=== PATIENT | female | born 1990 | race Caucasian/White ===

== ENCOUNTER 2018-01-28 23:28 | Emergency (ER) | payer OTHER ==
[2018-01-29] MEDS ORDERED: Zofran 4 MG/2 ML VIAL IV ONE (00:03)
[2018-01-29] MEDS ORDERED: Zofran 4 MG/2 ML VIAL ONE (00:09)
[2018-01-29] MEDS ORDERED: Sodium Chloride 0.9% 1000 ML 1,000 ML ONE (00:09)
--- NOTE | 2018-01-29 00:11 | ERPHSYRPT ---
- History of Present Illness Time Seen by Provider: 01/28/18 23:57 Historian: patient Exam Limitations: clinical condition Patient Subjective Stated Complaint: Pt arrives to ER with c/o mid epigastric abdominal pain began last night at work and became worse today. Also c/o N/V. Was constipated for 2 days and had BM today but has abdominal cramping feeling need for another BM. Denies fever, dysuria, hematuria or any other sx. Triage Nursing Assessment: see above Physician History: PATIENT COMPLAINS OF UPPER ABDOMINAL PAINS X 6 HOURS ASSOCIATED WITH NAUSEA AND EMESIS. HAS ASSOCIATED CONSTIPATION. DENIES URINARY SYMPTOMS. Timing/Duration: today, hour(s) Activities at Onset: none Quality: cramping Abdominal Pain Onset Location: epigastric Pain Radiation: no radiation Severity of Pain-Max: moderate Severity of Pain-Current: moderate Associated Symptoms: nausea, vomiting Allergies/Adverse Reactions: No Known Drug Allergies Allergy (Verified 01/28/18 23:53) Hx Tetanus, Diphtheria Vaccination/Date Given: (unknown) Hx Influenza Vaccination/Date Given: No Hx Pneumococcal Vaccination/Date Given: No - Review of Systems Constitutional: No Fever, No Chills Eyes: No Symptoms Ears, Nose, & Throat: No Symptoms Respiratory: No Cough, No Dyspnea Cardiac: No Chest Pain, No Edema, No Syncope Abdominal/Gastrointestinal: Abdominal Pain, Nausea, Vomiting, No Diarrhea Genitourinary Symptoms: No Symptoms, No Dysuria Musculoskeletal: No Symptoms, No Back Pain, No Neck Pain Skin: No Rash Neurological: No Symptoms, No Dizziness, No Focal Weakness, No Sensory Changes Psychological: No Symptoms Endocrine: No Symptoms All Other Systems: Reviewed and Negative - Past Medical History Pertinent Past Medical History: Yes Neurological History: No Pertinent History ENT History: No Pertinent History Cardiac History: No Pertinent History Respiratory History: No Pertinent History Endocrine Medical History: No Pertinent History Musculoskeletal History: No Pertinent History GI Medical History: Gallbladder Disease History: No Pertinent History Psycho-Social History: No Pertinent History Female Reproductive Disorders: No Pertinent History - Past Surgical History Past Surgical History: Yes Neuro Surgical History: No Pertinent History Cardiac: No Pertinent History Respiratory: No Pertinent History Gastrointestinal: Cholecystectomy Genitourinary: No Pertinent History Musculoskeletal: No Pertinent History Female Surgical History: Section Other Surgical History: t &a, skin biopsy - Social History Smoking Status: Current every day smoker Exposure to second hand smoke: Yes Drug Use: none Patient Lives Alone: No - Female History Hx Now: No - Nursing Vital Signs Nursing Vital Signs: Initial Vital Signs Temperature 97.4 F 01/28/18 23:45 Pulse Rate 64 01/28/18 23:45 Respiratory Rate 18 01/28/18 23:45 Blood Pressure 127/77 01/28/18 23:45 O2 Sat by Pulse Oximetry 99 01/28/18 23:45 Pain Scale Pain Intensity 4 - Physical Exam General Appearance: no apparent distress, alert Eye Exam: PERRL/EOMI, eyes nml inspection Ears, Nose, Throat Exam: normal ENT inspection, pharynx normal, moist mucous membranes Neck Exam: normal inspection, non-tender, supple, full range of motion Respiratory Exam: normal breath sounds, lungs clear, No respiratory distress Cardiovascular Exam: regular rate/rhythm, normal heart sounds Gastrointestinal/Abdomen Exam: soft, normal bowel sounds, tenderness (UPPER EPIGASTRIC TENDERNESS), No mass Back Exam: normal inspection, normal range of motion, No CVA tenderness, No vertebral tenderness Extremity Exam: normal inspection, normal range of motion, pelvis stable Neurologic Exam: alert, oriented x 3, cooperative, normal mood/affect, nml cerebellar function, sensation nml, No motor deficits Skin Exam: normal color, warm, dry SpO2 Interpretation: normal SpO2: 99 Oxygen Delivery: Room Air - CT Exams Abdomen/Pelvis CT Interpretation: Tele-radiologist Report (FINDINGS SUGGESTIVE OF MESENTERIC ADENITIS, MILD, POSSIBLE LARGE FIBROID IN LOWER UTERINE SEGMENT) Ordered Tests: Active Orders 24 hr Category Date Time Status Clean Catch Urine Specimen STAT Care 01/29/18 00:03 Active IV Insertion STAT Care 01/29/18 00:03 Active ABDOMEN AND PELVIS W CONTRAST [CT] Stat Exams 01/29/18 00:04 Taken AMYLASE Stat Lab 01/29/18 00:20 Completed CBC W DIFF Stat Lab 01/29/18 00:20 Completed CMP Stat Lab 01/29/18 00:20 Completed HCG,QUALITATIVE URINE Stat Lab 01/29/18 02:15 Completed LIPASE Stat Lab 01/29/18 00:20 Completed UA W/ MICROSCOPIC Stat Lab 01/29/18 00:30 Completed Medication Summary Generic Name Dose Route Start Last Admin Trade Name Freq PRN Reason Stop Dose Admin Sodium Chloride 1,000 mls @ 500 mls/hr 01/29/18 00:15 01/29/18 02:30 Sodium Chloride 0.9% 1000 Ml IV 02/28/18 00:14 Infused .Q2H ANGELICA Infusion Discontinued Medications Generic Name Dose Route Start Last Admin Trade Name Larissa PRN Reason Stop Dose Admin Fentanyl Citrate 100 mcg 01/29/18 00:55 01/29/18 00:59 Sublimaze 100 Mcg/2 Ml IV 01/29/18 00:56 100 mcg STAT ONE Administration Fentanyl Citrate Confirm 01/29/18 00:57 Sublimaze 100 Mcg/2 Ml Administered 01/29/18 00:58 Dose 100 mcg .ROUTE .STK[facility] ONE Ondansetron HCl 4 mg 01/29/18 00:03 01/29/18 00:15 Zofran 4 Mg/2 Ml Vial IV 01/29/18 00:04 4 mg STAT ONE Administration Ondansetron HCl Confirm 01/29/18 00:09 Zofran 4 Mg/2 Ml Vial Administered 01/29/18 00:10 Dose 4 mg .ROUTE .STK-MED ONE Lab/Rad Data: Laboratory Result Diagrams 01/29/18 00:20 01/29/18 00:20 Laboratory Results 01/29/18 01/29/18 01/29/18 Range/Units 02:15 00:30 00:20 WBC (4.0-10.5) K/mm3 RBC (4.1-5.4) M/mm3 Hgb (12.0-16.0) gm/dl Hct (35-47) % MCV (78-100) fl MCH (26-32) pg MCHC (32-36) g/dl RDW (11.5-14.0) % Plt Count (150-450) K/mm3 MPV (6-9.5) fl Gran % (36.0-66.0) % Eos # (Auto) (0-0.5) Absolute Lymphs (auto) (1.0-4.6) Absolute Monos (auto) (0.0-1.3) Lymphocytes % (24.0-44.0) % Monocytes % (0.0-12.0) % Eosinophils % (0.00-5.0) % Basophils % (0.0-0.4) % Absolute Granulocytes (1.4-6.9) Basophils # (0-0.4) Sodium 140 (137-145) mmol/L Potassium 3.7 (3.5-5.1) mmol/L Chloride 106 (98-107) mmol/L Carbon Dioxide 25 (22-30) mmol/L Anion Gap 13.3 (5-15) MEQ/L BUN 10 (7-17) mg/dL Creatinine 0.64 (0.52-1.04) mg/dL Estimated GFR > 60.0 ML/MIN Glucose 107 H (74-106) mg/dL Calcium 9.4 (8.4-10.2) mg/dL Total Bilirubin 0.30 (0.2-1.3) mg/dL AST 15 (14-36) U/L ALT 15 (0-35) U/L Alkaline Phosphatase 68 (38-126) U/L Serum Total Protein 7.7 (6.3-8.2) g/dL Albumin 4.4 (3.5-5.0) g/dL Amylase 69 (30-110) U/L Lipase 53 (23-300) U/L Ur Collection Type CLEAN CATCH Urine Color YELLOW (YELLOW) Urine Appearance CLEAR (CLEAR) Urine pH 5.0 (5-6) Ur Specific [place] 1.030 (1.005-1.025) Urine Protein NEGATIVE (Negative) Urine Ketones NEGATIVE (NEGATIVE) Urine Blood TRACE NON-HEM (0-5) Ju[place]/ul Urine Nitrite NEGATIVE (NEGATIVE) Urine Bilirubin NEGATIVE (NEGATIVE) Urine Urobilinogen NORMAL (0-1) mg/dL Ur Leukocyte Esterase NEGATIVE (NEGATIVE) Urine Microscopic RBC 5-10 (0-2) /HPF Ur Epithelial Cells FEW (FEW) /HPF Urine Bacteria RARE (NEGATIVE) /HPF Urine Culture Reflexed NO (NO) Urine Glucose NEGATIVE (NEGATIVE) mg/dL Urine HCG, Qual NEGATIVE (Negative) Specimen Received 01/29/18 0030 01/29/18 Range/Units 00:20 WBC 9.4 (4.0-10.5) K/mm3 RBC 4.48 (4.1-5.4) M/mm3 Hgb 14.2 (12.0-16.0) gm/dl Hct 41.3 (35-47) % MCV 92.2 (78-100) fl MCH 31.7 (26-32) pg MCHC 34.4 (32-36) g/dl RDW 12.9 (11.5-14.0) % Plt Count 313 (150-450) K/mm3 MPV 11.3 H (6-9.5) fl Gran % 60.9 (36.0-66.0) % Eos # (Auto) 0.32 (0-0.5) Absolute Lymphs (auto) 2.52 (1.0-4.6) Absolute Monos (auto) 0.81 (0.0-1.3) Lymphocytes % 26.8 (24.0-44.0) % Monocytes % 8.6 (0.0-12.0) % Eosinophils % 3.4 (0.00-5.0) % Basophils % 0.3 (0.0-0.4) % Absolute Granulocytes 5.73 (1.4-6.9) Basophils # 0.03 (0-0.4) Sodium (137-145) mmol/L Potassium (3.5-5.1) mmol/L Chloride (98-107) mmol/L Carbon Dioxide (22-30) mmol/L Anion Gap (5-15) MEQ/L BUN (7-17) mg/dL Creatinine (0.52-1.04) mg/dL Estimated GFR ML/MIN Glucose (74-106) mg/dL Calcium (8.4-10.2) mg/dL Total Bilirubin (0.2-1.3) mg/dL AST (14-36) U/L ALT (0-35) U/L Alkaline Phosphatase (38-126) U/L Serum Total Protein (6.3-8.2) g/dL Albumin (3.5-5.0) g/dL Amylase (30-110) U/L Lipase (23-300) U/L Ur Collection Type Urine Color (YELLOW) Urine Appearance (CLEAR) Urine pH (5-6) Ur Specific [place] (1.005-1.025) Urine Protein (Negative) Urine Ketones (NEGATIVE) Urine Blood (0-5) Ju[place]/ul Urine Nitrite (NEGATIVE) Urine Bilirubin (NEGATIVE) Urine Urobilinogen (0-1) mg/dL Ur Leukocyte Esterase (NEGATIVE) Urine Microscopic RBC (0-2) /HPF Ur Epithelial Cells (FEW) /HPF Urine Bacteria (NEGATIVE) /HPF Urine Culture Reflexed (NO) Urine Glucose (NEGATIVE) mg/dL Urine HCG, Qual (Negative) Specimen Received - Progress Progress: pain not gone completely Progress Note: 01/29/18 04:13 IV NORMAL SALINE 500ML/HR, X 2 ZOFRAN 4MG, FENTANYL 50MCG IV Counseled pt/family regarding: lab results, diagnosis, need for follow-up, rad results - Departure Time of Disposition: 04:20 Departure Disposition: Home Clinical Impression: ACUTE EMESIS Condition: Stable Critical Care Time: No Referrals: JOSE LI MD [Primary Care Provider] - Additional Instructions: DRINK PLENTY OF FLUIDS. ZOFRAN 4MG EVERY 6 HOURS NEEDED FOR NAUSEA. PEPCID 20MG TWICE DAILY FOR 2 WEEKS. CONSULT YOUR PRIMARY CARE PROVIDER FOR FOLLOWUP. RETURN TO EMERGENCY FOR RECURRENT VOMITING. Prescriptions: Ondansetron ODT 4 MG [Zofran Odt 4 mg] 4 mg PO Q6H PRN PRN #10 tab.rapdis PRN Reason: Nausea Famotidine 20 mg [Pepcid 20 MG] 20 mg PO BID #30 tablet
[2018-01-29] MEDS ORDERED: Sodium Chloride 0.9% 1000 ML 1,000 ML IV SCH (00:15)
[2018-01-29 00:33] LABS: BASOPHIL % 0.3 % (0.0-0.4); Basophil (Absolute #) 0.03 (0-0.4); Eosinophil % 3.4 % (0.00-5.0); Eosinophil (Absolute #) 0.32 (0-0.5); Granulocyte Absolute (ANC) 5.73 (1.4-6.9); Granulocytes % 60.9 % (36.0-66.0); Hematocrit 41.3 % (35-47); Hemoglobin 14.2 gm/dl (12.0-16.0); Lymphocyte (Absolute #) 2.52 (1.0-4.6); Lymphocytes % 26.8 % (24.0-44.0); Mean Cell Volume 92.2 fl (78-100); Mean Corpuscular Hemoglobin 31.7 pg (26-32); Mean Corpuscular Hgb Concent. 34.4 g/dl (32-36); Mean Platelet Volume 11.3 fl (6-9.5); Monocyte (Absolute #) 0.81 (0.0-1.3); Monocytes % 8.6 % (0.0-12.0); Platelet Count 313 K/mm3 (150-450); Red Blood Count 4.48 M/mm3 (4.1-5.4); Red Cell Distribution Width 12.9 % (11.5-14.0); White Blood Count 9.4 K/mm3 (4.0-10.5)
[2018-01-29 00:52] LABS: ALBUMIN 4.4 g/dL (3.5-5.0); ALKALINE PHOSPHATASE 68 U/L (38-126); AMYLASE 69 U/L (30-110); ANION GAP 13.3 MEQ/L (5-15); BLOOD UREA NITROGEN 10 mg/dL (7-17); CHLORIDE 106 mmol/L (98-107); Calcium 9.4 mg/dL (8.4-10.2); Carbon Dioxide 25 mmol/L (22-30); Creatinine 1 0.64 mg/dL (0.52-1.04); Glucose 107 mg/dL (74-106); LIPASE 53 U/L (23-300); Potassium 3.7 mmol/L (3.5-5.1); SGOT/AST 15 U/L (14-36); SGPT/ALT 15 U/L (0-35); SODIUM 140 mmol/L (137-145); Total Protein 7.7 g/dL (6.3-8.2)
[2018-01-29] MEDS ORDERED: SUBLIMAZE 100 MCG/2 ML IV ONE (00:55)
[2018-01-29] MEDS ORDERED: SUBLIMAZE 100 MCG/2 ML ONE (00:57)
[2018-01-29 01:02] LABS: Appearance CLEAR (CLEAR); Bacteria RARE /HPF (NEGATIVE); Bilirubin NEGATIVE (NEGATIVE); Blood TRACE NON-HEM Ery/ul (0-5); Epithelial Cells FEW /HPF (FEW); Glucose NEGATIVE (NEGATIVE); Ketones NEGATIVE (NEGATIVE); Leukocyte Esterase NEGATIVE (NEGATIVE); Nitrite NEGATIVE (NEGATIVE); Protein,Urine Dip NEGATIVE (Negative); Urobilinogen NORMAL mg/dL (0-1)
[2018-01-29 03:28] VITALS: BP 109/65; PULSE 57
[2018-01-29 04:19] VITALS: O2SAT 99
--- NOTE | 2018-01-29 20:56 | XRAY ---
Exam: CT of the abdomen and pelvis with IV contrast from 01/29/2018. CTDI: 19.46 Comparison: None. Indication: 27-year-old female with sharp acute upper abdominal pain. History of prior cholecystectomy. Technique: Post-IV contrast axial images were obtained through the abdomen and pelvis during and following automated injection of 80 cc of Isovue 370 contrast material. Reconstructed coronal and sagittal images were created and reviewed. Findings: The visualized lung bases appear clear. The patient has bilateral nipple rings. The liver appears unremarkable. Minimal focal fatty change is seen within the anterior aspect of the left lobe of the liver adjacent to the falciform ligament. I don't believe this is significant. Surgical clips consistent with prior cholecystectomy are seen within the right upper quadrant. There is slight intrahepatic bile duct prominence which probably reflects the patient's prior cholecystectomy. There is also mild prominence of the common bile duct which measures up to about 8 mm in diameter on axial image #31. This is also most likely due to the patient's postcholecystectomy state. The spleen appears unremarkable. The pancreas, adrenal glands, and kidneys appear normal. The kidneys function on delayed images. I see no renal calculi or evidence of hydronephrosis. The abdominal aorta appears of normal diameter. No abnormal retroperitoneal lymphadenopathy is seen. No free intraperitoneal air is noted. Unfortunately, mild motion artifact is noted within the mid to lower pelvis. Apparently, the patient sneezed during the exam. I see no findings to suggest appendicitis within the right lower quadrant. There are several very small nonspecific mesenteric lymph nodes within the right lower quadrant, the largest measuring about 0.9 cm in greatest length. Consider mild mesenteric adenitis. I see no evidence of significant bowel distention or bowel wall thickening. Some fluid-filled nondilated distal small bowel loops are seen within the lower pelvis. I see no bowel obstruction. An IUD is seen within a mildly anteflexed uterus. Within the lower uterine segment near the cervix, there is a 3.5 cm in diameter, ring-like, hypoattenuated density, best seen on axial images #79 and #80. I do not definitely see this on the coronal or sagittal images. Consider the possibility of a mass in the cervix or within the lower uterine segment. A follow-up pelvic ultrasound may be helpful. I believe there is a 1.3 cm in diameter follicle within the left ovary on axial image #75. There is minimal nonspecific free fluid within the cul-de-sac on axial images #75 through #80. No enlarged pelvic lymph nodes are seen. The urinary bladder is incompletely distended. The skeleton reveals no fracture or aggressive bone lesion. There is minimal convexity of the spine toward the right centered at L1-L2. Impression: 1. The study is mildly motion limited within the pelvis. 2. The appendix is identified within the right hemipelvis and appears normal. I do note several small mesenteric lymph nodes within the right lower quadrant. These are relatively nonspecific. Consider mild mesenteric adenitis. 3. There is a 3.5 cm in diameter, ring-like, hypoattenuated density either within the lower uterine segment or near the cervix on axial images #79 and #80. Significance of this is not clear. A small mass is not excluded with present imaging. Consider further evaluation with a pelvic ultrasound. 4. 1.3 cm in diameter follicle or small cyst within left ovary. There is also minimal nonspecific free fluid within the cul-de-sac. 5. The uterus is anteflexed and tilted to the right of midline. It contains an IUD. 6. Status post cholecystectomy. 7. No other acute process is seen within the abdomen or pelvis.
== END 2018-01-29 04:28 | disposition home or self-care (01) ==
LOC: ED 23:28
DX: R11.2 Nausea with vomiting, unspecified (principal); R10.13 Epigastric pain; K59.00 Constipation, unspecified
CPT/HCPCS: 36000; 36415; 74177; 80053; 81000; 82150; 83690; 84703; 85025; 96360; 96374; 96375; 99284; J2405; J3010

== ENCOUNTER 2021-08-21 15:30 | Observation (INO) | payer OTHER ==
[2021-08-21] MEDS ORDERED: Sodium Chloride 0.9% 1000 ML 1,000 ML ONE (16:06)
[2021-08-21] MEDS: Sodium Chloride 0.9% 1000 ML 1,000 ML IV SCH (16:09)
[2021-08-21 16:13] LABS: BASOPHIL % 0.8 % (0.0-0.4); Basophil (Absolute #) 0.06 (0-0.4); Eosinophil % 6.3 % (0.00-5.0); Hematocrit 39.6 % (35-47); Lymphocyte (Absolute #) 2.57 (1.0-4.6); Lymphocytes % 32.5 % (24.0-44.0); Mean Cell Volume 91.9 fl (78-100); Mean Corpuscular Hemoglobin 30.2 pg (26-32); Mean Corpuscular Hgb Concent. 32.8 g/dl (32-36); Mean Platelet Volume 10.6 fl (7.5-11.0); Monocyte (Absolute #) 0.67 (0.0-1.3); Monocytes % 8.5 % (0.0-12.0); Neutrophil % 51.9 % (36.0-66.0); Platelet Count 295 K/mm3 (150-450); Red Blood Count 4.31 M/mm3 (4.1-5.4); Red Cell Distribution Width 12.4 % (11.5-14.0); White Blood Count 7.9 K/mm3 (4.0-10.5)
--- NOTE | 2021-08-21 16:27 | XRAY ---
Indication: Seizure. History seizures. Multiple contiguous axial images obtained through the head without contrast. Comparison: None Normal appearing brain parenchyma, ventricles, and bony calvarium. Visualized paranasal sinuses and mastoid or cells are clear. Impression: Normal CT head without contrast exam.
[2021-08-21 16:31] LABS: ALBUMIN 4.5 g/dL (3.5-5.0); ALKALINE PHOSPHATASE 72 U/L (38-126); ANION GAP 12.3 MEQ/L (5-15); BLOOD UREA NITROGEN 5 mg/dL (7-17); CHLORIDE 103 mmol/L (98-107); Calcium 9.6 mg/dL (8.4-10.2); Carbon Dioxide 27 mmol/L (22-30); Creatinine 1 0.73 mg/dL (0.52-1.04); EST GLOMERULAR FILTRATION RATE > 60.0 ML/MIN; ETHYL ALCOHOL < 10 mg/dL (0-10); Glucose 97 mg/dL (74-106); MAGNESIUM 1.7 mg/dL (1.6-2.3); Potassium 3.6 mmol/L (3.5-5.1); SGOT/AST 22 U/L (14-36); SGPT/ALT 18 U/L (0-35); SODIUM 139 mmol/L (137-145); Total Protein 7.5 g/dL (6.3-8.2)
[2021-08-21 17:39] LABS: Appearance SLIGHTLY CLOUDY (CLEAR); Bilirubin NEGATIVE (NEGATIVE); Blood NEGATIVE Ery/ul (0-5); Glucose NEGATIVE (NEGATIVE); Ketones NEGATIVE (NEGATIVE); Leukocyte Esterase NEGATIVE (NEGATIVE); Mucus SLIGHT /HPF (NEGATIVE); Nitrite NEGATIVE (NEGATIVE); Protein,Urine Dip NEGATIVE (Negative); Specific Gravity 1.005 (1.005-1.025); Urobilinogen NEGATIVE mg/dL (0-1)
--- NOTE | 2021-08-21 17:58 | ERPHSYRPT ---
- History of Present Illness Time Seen by Provider: 08/21/21 15:45 Source: patient Exam Limitations: no limitations Patient Subjective Stated Complaint: " I have shingles in my left eye and I was at the eye doctor and they said I had a seizure". Triage Nursing Assessment: Pt presents to ER, by private vehicle from eye doctor. Pt's eye doctor called and stated she had a witnessed seizure in his exam room as he was evaulating her for shingles in the left eye. Pt complains of pain in left eye and noted swelling/rash. Pt is alert and oriented x 3. Does not recall seizure, states she got really hot and then she thinks she lost conciousness. It was reported that seizure lasted approx 10 seconds and pt was shaking arms and legs. Pt skin is pink, warm, and dry. States she had seizure like activity earlier this year when she was getting her blood drawn. Pt respirations are easy. Pt complains of dizziness, lightheadedness, tingling all over, and headache. 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 Patient has shingles to her left eye. Patient was obtaining a eye exam by her raw stock drier tender when she reportedly had a seizure. The seizure was described as a generalized seizure. Seizure lasted approximately 10 seconds. Patient does not recall the seizure but states she felt as though she had passed out. Patient complains of dizziness lightheadedness and tingling throughout her body. She has a mild headache. Patient states she has had a s eizure in the past. Patient had a seizure while she was donating blood. Symptoms are mild to moderate in intensity. No specific worsening improving factors. Patient voices no other complaints or concerns at this time. Timing/Duration: today Severity: moderate Modifying Factors: Improves With: nothing Associated Symptoms: syncope, seizure Allergies/Adverse Reactions: No Known Drug Allergies Allergy (Verified 08/21/21 15:45) Home Medications: Belimumab [Benlysta] 200 mg SQ WEEKLY 08/21/21 [History] Duloxetine HCl 30 mg PO DAILY 08/21/21 [History] Ergocalciferol (Vitamin D2) [Vitamin D2] 1 cap PO DAILY 08/21/21 [History] Hydroxyzine HCl 25 mg [Atarax 25 mg] 25 mg PO HS 08/21/21 [History] Hx Tetanus, Diphtheria Vaccination/Date Given: No Hx Influenza Vaccination/Date Given: No Hx Pneumococcal Vaccination/Date Given: No Immunizations Up to Date: Yes Travel Risk - International Travel Have you traveled outside of the country in past 3 weeks: No - Coronavirus Screening Are you exhibiting any of the following symptoms?: No Close contact with a COVID-19 positive Pt in past 14-21 Days: No - Vaccine Status Have you recieved a Covid-19 vaccination: No - Review of Systems Constitutional: No Symptoms, No Fever, No Chills Eyes: No Symptoms Ears, Nose, & Throat: No Symptoms Respiratory: No Symptoms, No Cough, No Dyspnea Cardiac: No Symptoms, No Chest Pain, No Edema, No Syncope Abdominal/Gastrointestinal: No Symptoms, No Abdominal Pain, No Nausea, No Vomiting, No Diarrhea Genitourinary Symptoms: No Symptoms, No Dysuria Musculoskeletal: No Symptoms, No Back Pain, No Neck Pain Skin: No Symptoms, No Rash Neurological: No Symptoms, No Dizziness, No Focal Weakness, No Sensory Changes Psychological: No Symptoms Endocrine: No Symptoms Hematologic/Lymphatic: No Symptoms Immunological/Allergic: No Symptoms All Other Systems: Reviewed and Negative - Past Medical History Pertinent Past Medical History: Yes Neurological History: Seizures ENT History: No Pertinent History Cardiac History: No Pertinent History Respiratory History: No Pertinent History Endocrine Medical History: No Pertinent History Musculoskeletal History: Fibromyalgia GI Medical History: Gallbladder Disease History: No Pertinent History Psycho-Social History: No Pertinent History Female Reproductive Disorders: No Pertinent History Other Medical History: LUPUS - Past Surgical History Past Surgical History: Yes Neuro Surgical History: No Pertinent History Cardiac: No Pertinent History Respiratory: No Pertinent History Gastrointestinal: Cholecystectomy Genitourinary: No Pertinent History Musculoskeletal: Orthopedic Surgery Female Surgical History: Section Other Surgical History: t &a, skin biopsy, carpal tunnel - Social History Smoking Status: Former smoker Exposure to second hand smoke: No Drug Use: none Patient Lives Alone: No - Female History Hx Now: No - Nursing Vital Signs Nursing Vital Signs: Initial Vital Signs Temperature 96.5 F 08/21/21 15:35 Pulse Rate 65 08/21/21 15:35 Respiratory Rate 18 08/21/21 15:35 Blood Pressure 121/87 08/21/21 15:35 O2 Sat by Pulse Oximetry 100 08/21/21 15:35 Pain Scale Pain Intensity 3 - Physical Exam General Appearance: no apparent distress, alert Eye Exam: PERRL/EOMI, eyes nml inspection Ears, Nose, Throat Exam: normal ENT inspection, TMs normal, pharynx normal, moist mucous membranes Neck Exam: normal inspection, non-tender, supple, full range of motion Respiratory Exam: normal breath sounds, lungs clear, airway intact, No respirat ory distress Cardiovascular Exam: regular rate/rhythm, normal heart sounds, normal peripheral pulses Gastrointestinal/Abdomen Exam: soft, normal bowel sounds, No tenderness, No mass Back Exam: normal inspection, normal range of motion, No CVA tenderness, No vertebral tenderness Extremity Exam: normal inspection, normal range of motion, pelvis stable Neurologic Exam: alert, oriented x 3, cooperative, normal mood/affect, sensation nml, No motor deficits Skin Exam: normal color, warm, dry, No rash Lymphatic Exam: No adenopathy SpO2 Interpretation: normal SpO2: 99 O2 Delivery: Room Air Procedures - Lumbar Puncture Timeout: Performed Indication: r/o meningitis Lumbar Puncture: consent obtained, sitting, 3-4 lumbar space Progress: Patient agreed to procedure. Consent was signed. However midway to the procedure patient declined the procedure. Patient states she no longer wanted to do the procedure. Procedure was aborted due to patient's request. - Course Nursing assessment & vital signs reviewed: Yes EKG Interpreted by Me: RATE ([id number]), Sinus Rhythm, NORMAL AXIS, NORMAL INTERVALS - CT Exams Head CT Interpretation: Tele-radiologist Report (Normal CT head without contrast.) Ordered Tests: Active Orders 24 hr Category Date Time Status Clinical Appeals Auditor STAT Care 08/21/21 15:44 Active EKG-ER Only STAT Care 08/21/21 15:43 Active IV Insertion STAT Care 08/21/21 15:43 Active Pulse Oximetry (ED) STAT Care 08/21/21 15:43 Active HEAD WITHOUT CONTRAST [CT] Stat Exams 08/21/21 15:44 Completed CBC W DIFF Stat Lab 08/21/21 15:43 Completed CMP Stat Lab 08/21/21 15:43 Completed ETHYL ALCOHOL Stat Lab 08/21/21 15:43 Completed MAGNESIUM Stat Lab 08/21/21 15:43 Completed TROPONIN Q3H Lab 08/21/21 15:45 Completed TROPONIN Q3H Lab 08/21/21 18:50 Completed TROPONIN Q3H Lab 08/21/21 21:51 Received TROPONIN Q3H Lab 08/22/21 00:45 Ordered TROPONIN Q3H Lab 08/22/21 03:45 Ordered UA W/RFX UR CULTURE Stat Lab 08/21/21 17:24 Completed Transfer Order Routine Transfer 08/21/21 Ordered Medication Summary Generic Name Dose Route Start Last Admin Trade Name Larissa PRN Reason Stop Dose Admin Sodium Chloride 1,000 mls @ 100 mls/hr 08/21/21 15:45 08/21/21 16:09 Sodium Chloride 0.9% 1000 Ml IV 09/20/21 15:44 100 mls/hr .Q10H ANGELICA Administration Discontinued Medications Generic Name Dose Route Start Last Admin Trade Name Larissa PRN Reason Stop Dose Admin Acetaminophen 1,000 mg 08/21/21 20:08 08/21/21 20:08 Acetaminophen 500 Mg Tablet PO 08/21/21 20:09 1,000 mg STAT ONE Administration Acetaminophen Confirm 08/21/21 20:07 Acetaminophen 500 Mg Tablet Administered 08/21/21 20:08 Dose 1,000 mg .ROUTE .STK-MED ONE Acyclovir Sodium Confirm 08/21/21 19:01 Acyclovir Sodium 500 Mg/Vial Vial Administered 08/21/21 19:02 Dose 500 mg IV .STK-MED ONE Vancomycin HCl 1 gm in 200 mls @ 125 mls/hr 08/21/21 18:28 08/21/21 21:52 Vancomycin 1 Gram/200 Ml Bag IV 08/21/21 20:03 Infused STAT ONE Infusion Ceftriaxone Sodium/Dextrose 1 g in 50 mls @ 100 mls/hr 08/21/21 18:29 08/21/21 19:26 Rocephin 1 Gm-D5w 50 Ml Bag IV 08/21/21 18:58 Infused STAT STA Infusion Acyclovir Sodium 500 mg/ 100 mls @ 100 mls/hr 08/21/21 18:30 08/21/21 19:02 Dextrose IV 08/21/21 19:29 100 mls/hr STAT ONE Administration Ceftriaxone Sodium/Dextrose Confirm 08/21/21 18:31 Rocephin 1 Gm-D5w 50 Ml Bag Administered 08/21/21 18:32 Dose 1 g in 50 mls @ ud IV .STK-MED ONE Dextrose Confirm 08/21/21 19:01 D5w 100ml Mini Bag 100 Ml Administered 08/21/21 19:02 Dose 100 mls @ ud IV .STK-MED ONE Vancomycin HCl Confirm 08/21/21 20:15 Vancomycin 1 Gram/200 Ml Bag Administered 08/21/21 20:16 Dose 1 gm in 200 mls @ ud IV .STK-MED ONE Lab/Rad Data: Laboratory Result Diagrams 08/21/21 15:43 08/21/21 15:43 Laboratory Results 08/21/21 08/21/21 08/21/21 Range/Units 20:25 18:50 17:24 WBC (4.0-10.5) K/mm3 RBC (4.1-5.4) M/mm3 Hgb (12.0-16.0) gm/dl Hct (35-47) % MCV (78-100) fl MCH (26-32) pg MCHC (32-36) g/dl RDW (11.5-14.0) % Plt Count (150-450) K/mm3 MPV (7.5-11.0) fl Gran % (36.0-66.0) % Eos # (Auto) (0-0.5) Absolute Lymphs (auto) (1.0-4.6) Absolute Monos (auto) (0.0-1.3) Lymphocytes % (24.0-44.0) % Monocytes % (0.0-12.0) % Eosinophils % (0.00-5.0) % Basophils % (0.0-0.4) % Absolute Granulocytes (1.4-6.9) Basophils # (0-0.4) Sodium (137-145) mmol/L Potassium (3.5-5.1) mmol/L Chloride (98-107) mmol/L Carbon Dioxide (22-30) mmol/L Anion Gap (5-15) MEQ/L BUN (7-17) mg/dL Creatinine (0.52-1.04) mg/dL Estimated GFR ML/MIN Glucose (74-106) mg/dL Calcium (8.4-10.2) mg/dL Magnesium (1.6-2.3) mg/dL Total Bilirubin (0.2-1.3) mg/dL AST (14-36) U/L ALT (0-35) U/L Alkaline Phosphatase (38-126) U/L Troponin I < 0.012 (0.000-0.034) ng/mL Serum Total Protein (6.3-8.2) g/dL Albumin (3.5-5.0) g/dL Urine Color STRAW (YELLOW) Urine Appearance SLIGHTLY CLOUDY (CLEAR) Urine pH 7.0 (5-6) Ur Specific [place] 1.005 (1.005-1.025) Urine Protein NEGATIVE (Negative) Urine Ketones NEGATIVE (NEGATIVE) Urine Blood NEGATIVE (0-5) [place]/ul Urine Nitrite NEGATIVE (NEGATIVE) Urine Bilirubin NEGATIVE (NEGATIVE) Urine Urobilinogen NEGATIVE (0-1) mg/dL Ur Leukocyte Esterase NEGATIVE (NEGATIVE) Urine WBC (Auto) NONE (0-5) /HPF Urine RBC (Auto) NONE (0-2) /HPF U Epithel Cells (Auto) NONE (FEW) /HPF Urine Bacteria (Auto) NONE (NEGATIVE) /HPF Urine Mucus (Auto) SLIGHT (NEGATIVE) /HPF Urine Culture Reflexed NO (NO) Urine Glucose NEGATIVE (NEGATIVE) mg/dL Ethyl Alcohol (0-10) mg/dL Influenza Type A Ag NEGATIVE (NEGATIVE) Influenza Type B Ag NEGATIVE (NEGATIVE) RSV (PCR) NEGATIVE (Negative) SARS-CoV-2 (PCR) NEGATIVE (NEGATIVE) 08/21/21 08/21/21 08/21/21 Range/Units 15:45 15:43 15:43 WBC 7.9 (4.0-10.5) K/mm3 RBC 4.31 (4.1-5.4) M/mm3 Hgb 13.0 (12.0-16.0) gm/dl Hct 39.6 (35-47) % MCV 91.9 (78-100) fl MCH 30.2 (26-32) pg MCHC 32.8 (32-36) g/dl RDW 12.4 (11.5-14.0) % Plt Count 295 (150-450) K/mm3 MPV 10.6 (7.5-11.0) fl Gran % 51.9 (36.0-66.0) % Eos # (Auto) 0.50 (0-0.5) Absolute Lymphs (auto) 2.57 (1.0-4.6) Absolute Monos (auto) 0.67 (0.0-1.3) Lymphocytes % 32.5 (24.0-44.0) % Monocytes % 8.5 (0.0-12.0) % Eosinophils % 6.3 H (0.00-5.0) % Basophils % 0.8 (0.0-0.4) % Absolute Granulocytes 4.10 (1.4-6.9) Basophils # 0.06 (0-0.4) Sodium 139 (137-145) mmol/L Potassium 3.6 (3.5-5.1) mmol/L Chloride 103 (98-107) mmol/L Carbon Dioxide 27 (22-30) mmol/L Anion Gap 12.3 (5-15) MEQ/L BUN 5 L (7-17) mg/dL Creatinine 0.73 (0.52-1.04) mg/dL Estimated GFR > 60.0 ML/MIN Glucose 97 (74-106) mg/dL Calcium 9.6 (8.4-10.2) mg/dL Magnesium 1.7 (1.6-2.3) mg/dL Total Bilirubin 0.70 (0.2-1.3) mg/dL AST 22 (14-36) U/L ALT 18 (0-35) U/L Alkaline Phosphatase 72 (38-126) U/L Troponin I < 0.012 (0.000-0.034) ng/mL Serum Total Protein 7.5 (6.3-8.2) g/dL Albumin 4.5 (3.5-5.0) g/dL Urine Color (YELLOW) Urine Appearance (CLEAR) Urine pH (5-6) Ur Specific [place] (1.005-1.025) Urine Protein (Negative) Urine Ketones (NEGATIVE) Urine Blood (0-5) [place]/ul Urine Nitrite (NEGATIVE) Urine Bilirubin (NEGATIVE) Urine Urobilinogen (0-1) mg/dL Ur Leukocyte Esterase (NEGATIVE) Urine WBC (Auto) (0-5) /HPF Urine RBC (Auto) (0-2) /HPF U Epithel Cells (Auto) (FEW) /HPF Urine Bacteria (Auto) (NEGATIVE) /HPF Urine Mucus (Auto) (NEGATIVE) /HPF Urine Culture Reflexed (NO) Urine Glucose (NEGATIVE) mg/dL Ethyl Alcohol < 10 (0-10) mg/dL Influenza Type A Ag (NEGATIVE) Influenza Type B Ag (NEGATIVE) RSV (PCR) (Negative) SARS-CoV-2 (PCR) (NEGATIVE) - Progress Progress: improved Progress Note: Patient reassessed. She feels well. Patient has zoster ophthalmologic. 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 We are worried about viral encephalitis. Patient has no neck pain or obvious meningeal signs at this point. We attempted to do a lumbar puncture. Patient agreed to lumbar puncture but then declined midway into the procedure. Patient states it was too uncomfortable. Patient treated for bacterial meningitis and viral mening itis/encephalitis. Case discussed with Dr. Li who accepts admission to observation. Plan of care discussed with patient and she agrees to admission [facility] for further evaluation and treatment. Patient is Covid negative. Portions of this note were created with voice recognition technology. 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
[2021-08-21] MEDS ORDERED: VANCOMYCIN 1 GRAM/200 ML BAG 1 GM/200 ML PIGGYBACK IV ONE ×2 (18:28→20:15)
[2021-08-21] MEDS ORDERED: ROCEPHIN 1 Gm-D5w 50 ml Bag** 1 G/50 ML IVPB IV STA (18:29)
[2021-08-21] MEDS ORDERED: Zovirax INJ*** 500 MG in D5w 100ML Mini Bag 100 ML 100 ML IV ONE (18:30)
[2021-08-21] MEDS ORDERED: ROCEPHIN 1 Gm-D5w 50 ml Bag** 1 G/50 ML IVPB IV ONE (18:31)
[2021-08-21] MEDS ORDERED: Zovirax INJ IV ONE (19:01)
[2021-08-21] MEDS ORDERED: D5w 100ML Mini Bag 100 ML 100 ML IV ONE (19:01)
[2021-08-21] MEDS ORDERED: TYLENOL EXTRA STRENGTH 500 MG ONE (20:07)
[2021-08-21] MEDS ORDERED: TYLENOL EXTRA STRENGTH 500 MG PO ONE (20:08)
[2021-08-21 21:18] LABS: INFLUENZA A NEGATIVE (NEGATIVE); INFLUENZA B NEGATIVE (NEGATIVE); RESPIRATORY SYNCTIAL VIRUS NEGATIVE (Negative); SARS-CoV-2 Xpert Express NEGATIVE (NEGATIVE)
[2021-08-21] MEDS ORDERED: MORPHINE SULFATE 2 MG INJ IV PRN (22:26)
[2021-08-21] MEDS: Zofran 4 MG/2 ML VIAL IV PRN (23:00)
[2021-08-22] MEDS: Sodium Chloride 0.9% 1000 ML 1,000 ML IV SCH ×2 (02:35→18:06)
[2021-08-22 06:05] LABS: Absolute Neutrophil Ct (ANC) 4.33 (1.4-6.9); BASOPHIL % 0.6 % (0.0-0.4); Basophil (Absolute #) 0.05 (0-0.4); Eosinophil % 5.3 % (0.00-5.0); Eosinophil (Absolute #) 0.42 (0-0.5); Hematocrit 35.4 % (35-47); Hemoglobin 11.3 gm/dl (12.0-16.0); Lymphocyte (Absolute #) 2.44 (1.0-4.6); Lymphocytes % 30.7 % (24.0-44.0); Mean Cell Volume 93.7 fl (78-100); Mean Corpuscular Hemoglobin 29.9 pg (26-32); Mean Corpuscular Hgb Concent. 31.9 g/dl (32-36); Monocyte (Absolute #) 0.71 (0.0-1.3); Monocytes % 8.9 % (0.0-12.0); Neutrophil % 54.5 % (36.0-66.0); Platelet Count 264 K/mm3 (150-450); Red Blood Count 3.78 M/mm3 (4.1-5.4); Red Cell Distribution Width 12.3 % (11.5-14.0)
[2021-08-22 06:27] LABS: ALBUMIN 3.4 g/dL (3.5-5.0); ALKALINE PHOSPHATASE 54 U/L (38-126); ANION GAP 10.3 MEQ/L (5-15); BLOOD UREA NITROGEN 4 mg/dL (7-17); CHLORIDE 107 mmol/L (98-107); Calcium 8.5 mg/dL (8.4-10.2); Carbon Dioxide 25 mmol/L (22-30); Creatinine 1 0.64 mg/dL (0.52-1.04); EST GLOMERULAR FILTRATION RATE > 60.0 ML/MIN; Glucose 91 mg/dL (74-106); SGOT/AST 19 U/L (14-36); SGPT/ALT 14 U/L (0-35); SODIUM 138 mmol/L (137-145)
--- NOTE | 2021-08-22 09:48 | PCM.HP ---
History of Present Illness - Chief Complaint Chief Complaint: seizure, eye shingles History of Present Illness: is a 31 year old female with a history of lupus who takes weekly belimumab injections who went to see optometry yesterday, she developed pain and photophobia in her left eye, began 2 days prior to being seen. her eye is red, there was no visual changes, no headache or fever. She was found to have herpes zoster in her left eye, following the exam she apparently had a syncopal episode but staff reported seizure activity. They called the office, did not call for ambulance as she returned to baseline quickly, there was no incontinence and she did not bite her tongue. - Review of Systems Constitutional: No Fever, No Chills Eyes: Eye Pain, Eye Redness, Photophobia Respiratory: No Cough, No Short Of Breath Cardiac: No Chest Pain, No Edema, No Syncope Abdominal/Gastrointestinal: No Abdominal Pain, No Nausea, No Vomiting, No D iarrhea All Other Systems: Reviewed and Negative Medications & Allergies Home Medications: Home Medication List Belimumab [Benlysta] 200 mg SQ WEEKLY 08/21/21 [History Confirmed 08/21/21] Duloxetine HCl 30 mg PO DAILY 08/21/21 [History Confirmed 08/21/21] Ergocalciferol (Vitamin D2) [Vitamin D2] 1 cap PO DAILY 08/21/21 [History Co nfirmed 08/21/21] Hydroxyzine HCl 25 mg [Atarax 25 mg] 25 mg PO HS 08/21/21 [History Confirmed 08/21/21] Allergies/Adverse Reactions: Allergies Allergy/AdvReac Type Severity Reaction Status Date / Time No Known Drug Allergies Allergy Verified 08/21/21 15:45 - Past Medical History Past Medical History: Yes Neurological History: Seizures ENT History: No Pertinent History Cardiac History: No Pertinent History Respiratory History: No Pertinent History Endocrine Medical History: No Pertinent History Musculoskelatal History: Fibromyalgia GI Medical History: Gallbladder Disease History: No Pertinent History Pyscho-Social History: No Pertinent History Reproductive Disorders: No Pertinent History Comment: LUPUS - Female History Are you now?: No - Past Surgical History Past Surgical History: Yes Neuro Surgical History: No Pertinent History Cardiac History: No Pertinent History Respiratory Surgery: No Pertinent History GI Surgical History: Cholecystectomy Genitourinary Surgical Hx: No Pertinent History Musculskeletal Surgical Hx: Orthopedic Surgery Female Surgical History: Section Other Surgical History: t &a, skin biopsy, carpal tunnel - Social History Smoking Status: Current every day smoker Exposure to second hand smoke: Yes Alcohol: None Drug Use: none - Physical Exam Vital Signs: Vital Signs - 24 hr Temp Pulse Resp BP Pulse Ox 08/22/21 08:00 98.4 F 63 19 100/50 99 08/22/21 04:00 67 15 08/21/21 23:10 99.7 F 67 18 110/59 97 08/21/21 22:26 97 08/21/21 22:08 69 17 121/65 98 08/21/21 22:06 99 08/21/21 21:00 60 18 120/77 99 08/21/21 20:00 64 91/77 97 08/21/21 18:34 62 20 123/55 92 L 08/21/21 17:23 59 L 15 117/75 99 08/21/21 16:11 93 L 08/21/21 15:35 96.5 F 65 18 121/87 100 General Appearance: no apparent distress, obese, other (nontoxic appearing, tolerating po. normal movement) Neurologic Exam: alert, oriented x 3, cooperative, title one reading teacher II-XII nml as tested, No motor deficits, No sensory deficit, No slurred speech Eye Exam: PERRL/EOMI, other (left conjunctiva injected, no obvious rash) Respiratory Exam: normal breath sounds, lungs clear, No respiratory distress Cardiovascular Exam: regular rate/rhythm, normal heart sounds, normal peripheral pulses Gastrointestinal/Abdomen Exam: soft, normal bowel sounds, No tenderness, No mass Extremity Exam: normal inspection, normal range of motion, pelvis stable Skin Exam: normal color, warm, dry, No rash Results - Labs Lab/Micro Results: Lab Results-Last 24 Hours 08/21/21 08/21/21 08/21/21 Range/Units 15:43 15:43 15:45 WBC 7.9 (4.0-10.5) K/mm3 RBC 4.31 (4.1-5.4) M/mm3 Hgb 13.0 (12.0-16.0) gm/dl Hct 39.6 (35-47) % MCV 91.9 (78-100) fl MCH 30.2 (26-32) pg MCHC 32.8 (32-36) g/dl RDW 12.4 (11.5-14.0) % Plt Count 295 (150-450) K/mm3 MPV 10.6 (7.5-11.0) fl Gran % 51.9 (36.0-66.0) % Eos # (Auto) 0.50 (0-0.5) Absolute Lymphs (auto) 2.57 (1.0-4.6) Absolute Monos (auto) 0.67 (0.0-1.3) Lymphocytes % 32.5 (24.0-44.0) % Monocytes % 8.5 (0.0-12.0) % Eosinophils % 6.3 H (0.00-5.0) % Basophils % 0.8 (0.0-0.4) % Absolute Granulocytes 4.10 (1.4-6.9) Basophils # 0.06 (0-0.4) Sodium 139 (137-145) mmol/L Potassium 3.6 (3.5-5.1) mmol/L Chloride 103 (98-107) mmol/L Carbon Dioxide 27 (22-30) mmol/L Anion Gap 12.3 (5-15) MEQ/L BUN 5 L (7-17) mg/dL Creatinine 0.73 (0.52-1.04) mg/dL Estimated GFR > 60.0 ML/MIN Glucose 97 (74-106) mg/dL Calcium 9.6 (8.4-10.2) mg/dL Magnesium 1.7 (1.6-2.3) mg/dL Total Bilirubin 0.70 (0.2-1.3) mg/dL AST 22 (14-36) U/L ALT 18 (0-35) U/L Alkaline Phosphatase 72 (38-126) U/L Troponin I < 0.012 (0.000-0.034) ng/mL Serum Total Protein 7.5 (6.3-8.2) g/dL Albumin 4.5 (3.5-5.0) g/dL Urine Color (YELLOW) Urine Appearance (CLEAR) Urine pH (5-6) Ur Specific [place] (1.005-1.025) Urine Protein (Negative) Urine Ketones (NEGATIVE) Urine Blood (0-5) [place]/ul Urine Nitrite (NEGATIVE) Urine Bilirubin (NEGATIVE) Urine Urobilinogen (0-1) mg/dL Ur Leukocyte Esterase (NEGATIVE) Urine WBC (Auto) (0-5) /HPF Urine RBC (Auto) (0-2) /HPF U Epithel Cells (Auto) (FEW) /HPF Urine Bacteria (Auto) (NEGATIVE) /HPF Urine Mucus (Auto) (NEGATIVE) /HPF Urine Culture Reflexed (NO) Urine Glucose (NEGATIVE) mg/dL Ethyl Alcohol < 10 (0-10) mg/dL Influenza Type A Ag (NEGATIVE) Influenza Type B Ag (NEGATIVE) RSV (PCR) (Negative) SARS-CoV-2 (PCR) (NEGATIVE) 08/21/21 08/21/21 08/21/21 Range/Units 17:24 18:50 20:25 WBC (4.0-10.5) K/mm3 RBC (4.1-5.4) M/mm3 Hgb (12.0-16.0) gm/dl Hct (35-47) % MCV (78-100) fl MCH (26-32) pg MCHC (32-36) g/dl RDW (11.5-14.0) % Plt Count (150-450) K/mm3 MPV (7.5-11.0) fl Gran % (36.0-66.0) % Eos # (Auto) (0-0.5) Absolute Lymphs (auto) (1.0-4.6) Absolute Monos (auto) (0.0-1.3) Lymphocytes % (24.0-44.0) % Monocytes % (0.0-12.0) % Eosinophils % (0.00-5.0) % Basophils % (0.0-0.4) % Absolute Granulocytes (1.4-6.9) Basophils # (0-0.4) Sodium (137-145) mmol/L Potassium (3.5-5.1) mmol/L Chloride (98-107) mmol/L Carbon Dioxide (22-30) mmol/L Anion Gap (5-15) MEQ/L BUN (7-17) mg/dL Creatinine (0.52-1.04) mg/dL Estimated GFR ML/MIN Glucose (74-106) mg/dL Calcium (8.4-10.2) mg/dL Magnesium (1.6-2.3) mg/dL Total Bilirubin (0.2-1.3) mg/dL AST (14-36) U/L ALT (0-35) U/L Alkaline Phosphatase (38-126) U/L Troponin I < 0.012 (0.000-0.034) ng/mL Serum Total Protein (6.3-8.2) g/dL Albumin (3.5-5.0) g/dL Urine Color STRAW (YELLOW) Urine Appearance SLIGHTLY CLOUDY (CLEAR) Urine pH 7.0 (5-6) Ur Specific [place] 1.005 (1.005-1.025) Urine Protein NEGATIVE (Negative) Urine Ketones NEGATIVE (NEGATIVE) Urine Blood NEGATIVE (0-5) [place]/ul Urine Nitrite NEGATIVE (NEGATIVE) Urine Bilirubin NEGATIVE (NEGATIVE) Urine Urobilinogen NEGATIVE (0-1) mg/dL Ur Leukocyte Esterase NEGATIVE (NEGATIVE) Urine WBC (Auto) NONE (0-5) /HPF Urine RBC (Auto) NONE (0-2) /HPF U Epithel Cells (Auto) NONE (FEW) /HPF Urine Bacteria (Auto) NONE (NEGATIVE) /HPF Urine Mucus (Auto) SLIGHT (NEGATIVE) /HPF Urine Culture Reflexed NO (NO) Urine Glucose NEGATIVE (NEGATIVE) mg/dL Ethyl Alcohol (0-10) mg/dL Influenza Type A Ag NEGATIVE (NEGATIVE) Influenza Type B Ag NEGATIVE (NEGATIVE) RSV (PCR) NEGATIVE (Negative) SARS-CoV-2 (PCR) NEGATIVE (NEGATIVE) 08/21/21 08/22/21 08/22/21 Range/Units 21:51 05:20 05:20 WBC 8.0 (4.0-10.5) K/mm3 RBC 3.78 L (4.1-5.4) M/mm3 Hgb 11.3 L (12.0-16.0) gm/dl Hct 35.4 (35-47) % MCV 93.7 (78-100) fl MCH 29.9 (26-32) pg MCHC 31.9 L (32-36) g/dl RDW 12.3 (11.5-14.0) % Plt Count 264 (150-450) K/mm3 MPV 11.0 (7.5-11.0) fl Gran % 54.5 (36.0-66.0) % Eos # (Auto) 0.42 (0-0.5) Absolute Lymphs (auto) 2.44 (1.0-4.6) Absolute Monos (auto) 0.71 (0.0-1.3) Lymphocytes % 30.7 (24.0-44.0) % Monocytes % 8.9 (0.0-12.0) % Eosinophils % 5.3 H (0.00-5.0) % Basophils % 0.6 (0.0-0.4) % Absolute Granulocytes 4.33 (1.4-6.9) Basophils # 0.05 (0-0.4) Sodium 138 (137-145) mmol/L Potassium 4.0 (3.5-5.1) mmol/L Chloride 107 (98-107) mmol/L Carbon Dioxide 25 (22-30) mmol/L Anion Gap 10.3 (5-15) MEQ/L BUN 4 L (7-17) mg/dL Creatinine 0.64 (0.52-1.04) mg/dL Estimated GFR > 60.0 ML/MIN Glucose 91 (74-106) mg/dL Calcium 8.5 (8.4-10.2) mg/dL Magnesium (1.6-2.3) mg/dL Total Bilirubin 0.70 (0.2-1.3) mg/dL AST 19 (14-36) U/L ALT 14 (0-35) U/L Alkaline Phosphatase 54 (38-126) U/L Troponin I < 0.012 (0.000-0.034) ng/mL Serum Total Protein 6.0 L (6.3-8.2) g/dL Albumin 3.4 L (3.5-5.0) g/dL Urine Color (YELLOW) Urine Appearance (CLEAR) Urine pH (5-6) Ur Specific [place] (1.005-1.025) Urine Protein (Negative) Urine Ketones (NEGATIVE) Urine Blood (0-5) [place]/ul Urine Nitrite (NEGATIVE) Urine Bilirubin (NEGATIVE) Urine Urobilinogen (0-1) mg/dL Ur Leukocyte Esterase (NEGATIVE) Urine WBC (Auto) (0-5) /HPF Urine RBC (Auto) (0-2) /HPF U Epithel Cells (Auto) (FEW) /HPF Urine Bacteria (Auto) (NEGATIVE) /HPF Urine Mucus (Auto) (NEGATIVE) /HPF Urine Culture Reflexed (NO) Urine Glucose (NEGATIVE) mg/dL Ethyl Alcohol (0-10) mg/dL Influenza Type A Ag (NEGATIVE) Influenza Type B Ag (NEGATIVE) RSV (PCR) (Negative) SARS-CoV-2 (PCR) (NEGATIVE) - Radiology Impressions Radiology Exams & Impressions: Radiology Procedures Category Date Time Status HEAD WITHOUT CONTRAST [CT] Stat Exams 08/21/21 15:44 Completed MRI BRAIN W & W/O CONTRAST [MRI] Routine Exams 08/22/21 09:43 Ordered - Other Procedures and Tests Respiratory Therapy 08/22/21 09:42 EEG 41-60 Minutes (Normal) ONCE Assessment/Plan (1) Herpes simplex ophthalmicus Current Visit: Yes Status: Acute Assessment & Plan: patient refused LP during procedure due to discomfort but patient is not toxic appearing and does not appear to have meningitis or encephalitis clinically. will d/c antibiotics, continue antiviral. Code(s): B00.50 - HERPESVIRAL OCULAR DISEASE, UNSPECIFIED (2) Seizure Current Visit: Yes Status: Acute Assessment & Plan: EEG and MRI brain w/wo pending. Code(s): R56.9 - UNSPECIFIED CONVULSIONS
[2021-08-22] MEDS: Cymbalta 30 MG Capsule PO SCH (11:56)
[2021-08-22] MEDS: SODIUM CHLORIDE 0.9% IV SCH ×2 (11:56→21:46)
[2021-08-22] MEDS: ZOVIRAX IV SCH ×2 (11:56→21:46)
[2021-08-22] MEDS: VITAMIN D PO SCH (11:56)
[2021-08-22] MEDS: NORCO 5/325 MG PO PRN ×3 (11:59→21:36)
--- NOTE | 2021-08-22 13:25 | XRAY ---
Indication: Left eye shingles. Recent seizure activity. Sagittal, coronal, and axial MRI brain performed using pre and post T1, T2, FLAIR, diffusion, and ADC sequences. 15 cc Dotarem contrast used. Comparison: None Ventriculosulcal pattern appears symmetric. No acute intracranial hemorrhage, abnormal extra-axial fluid collection, or mass effect. Diffusion images are negative for restricted signal. Negative for mesial temporal sclerosis. Following gadolinium, there is no abnormal enhancing intra or extra-axial mass. Fourth ventricle is midline without hydrocephalus. 7/8 cranial nerve complex bilaterally symmetric. Normal flow void signal within the major intracerebral circulation. Normal appearing craniocervical junction and sella turcica. Both frontal sinuses demonstrates minimal mucosal thickening left greater than right without fluid leveling. Impression: 1. Minimal paranasal sinus disease. 2. Remaining MRI brain with contrast exam is negative.
[2021-08-22] MEDS: Zofran 4 MG/2 ML VIAL IV PRN (21:40)
[2021-08-22] MEDS ORDERED: ATARAX 25 MG PO SCH (22:00)
[2021-08-23] MEDS: SODIUM CHLORIDE 0.9% IV SCH ×3 (05:21→19:52)
[2021-08-23] MEDS: ZOVIRAX IV SCH ×3 (05:21→19:52)
[2021-08-23] MEDS: Sodium Chloride 0.9% 1000 ML 1,000 ML IV SCH ×2 (05:22→19:53)
[2021-08-23] MEDS: NORCO 5/325 MG PO PRN (05:50)
[2021-08-23 06:27] LABS: Absolute Neutrophil Ct (ANC) 2.91 (1.4-6.9); BASOPHIL % 0.4 % (0.0-0.4); Basophil (Absolute #) 0.03 (0-0.4); Eosinophil % 6.2 % (0.00-5.0); Eosinophil (Absolute #) 0.43 (0-0.5); Hematocrit 32.9 % (35-47); Hemoglobin 10.5 gm/dl (12.0-16.0); Lymphocyte (Absolute #) 3.01 (1.0-4.6); Lymphocytes % 43.5 % (24.0-44.0); Mean Cell Volume 94.3 fl (78-100); Mean Corpuscular Hemoglobin 30.1 pg (26-32); Mean Corpuscular Hgb Concent. 31.9 g/dl (32-36); Monocyte (Absolute #) 0.54 (0.0-1.3); Monocytes % 7.8 % (0.0-12.0); Neutrophil % 42.1 % (36.0-66.0); Platelet Count 248 K/mm3 (150-450); Red Blood Count 3.49 M/mm3 (4.1-5.4); Red Cell Distribution Width 12.3 % (11.5-14.0); White Blood Count 6.9 K/mm3 (4.0-10.5)
[2021-08-23 06:46] LABS: ANION GAP 7.4 MEQ/L (5-15); CHLORIDE 106 mmol/L (98-107); Calcium 7.8 mg/dL (8.4-10.2); Carbon Dioxide 27 mmol/L (22-30); Creatinine 1 0.65 mg/dL (0.52-1.04); EST GLOMERULAR FILTRATION RATE > 60.0 ML/MIN; Glucose 90 mg/dL (74-106); MAGNESIUM 1.6 mg/dL (1.6-2.3); Potassium 3.3 mmol/L (3.5-5.1); SODIUM 137 mmol/L (137-145)
[2021-08-23 06:53] LABS: BLOOD UREA NITROGEN < 2 mg/dL (7-17)
[2021-08-23] MEDS ORDERED: Hydromorphone 1 mg/ml Injection IV PRN (09:41)
[2021-08-23] MEDS: Zofran 4 MG/2 ML VIAL IV PRN (09:51)
[2021-08-23] MEDS: VITAMIN D PO SCH (09:52)
[2021-08-23] MEDS: Cymbalta 30 MG Capsule PO SCH (09:52)
[2021-08-23] MEDS ORDERED: VITAMIN D2 PO SCH (10:00)
--- NOTE | 2021-08-23 13:18 | PCM.NOTE ---
Date and Time: 08/23/21 1314 Subjective Assessment: C/O left eye pain ,headache is better. Is in pain not controlled with oral meds but stating "I have to get home for my kids [place]". EEG and MRI were wnl. Teleneuro today due to witnessed seizure . Plan home after IV Acyclovir dose this afternoon. Neuologist should call me with his plan and I will notify the patient of any changes needed. Objective Exam General Appearance: mild distress, anxiety Neurologic Exam: alert, oriented x 3 Skin Exam: normal color, warm, dry Eye Exam: other (left eye red and watery) Ears, Nose, Throat Exam: moist mucous membranes Neck Exam: normal inspection Respiratory Exam: normal breath sounds Cardiovascular Exam: regular rate/rhythm Gastrointestinal/Abdomen Exam: soft (nontender) Back Exam: normal inspection OBJECTIVE DATA Vital Signs: Vital Signs - 24 hr Temp Pulse Resp BP Pulse Ox 08/23/21 06:17 98.2 F 70 18 87/52 97 08/23/21 04:02 97.6 F 58 L 14 92/56 96 08/23/21 00:00 97.1 F 65 18 87/49 95 08/22/21 20:00 97.7 F 62 18 107/60 95 08/22/21 16:00 98.0 F 56 L 19 127/66 98 Pain Assessment - Last Documented Pain Intensity 5 Pain Scale Used 0-10 Pain Scale Intake and Output: Intake & Output 08/21/21 08/22/21 08/23/21 08/24/21 11:59 11:59 11:59 11:59 Intake Total 580 3230 640 Balance 580 3230 640 Weight 87.3 kg Lab Results: Lab Results-Last 24 Hours 08/23/21 08/23/21 Range/Units 06:00 06:00 WBC 6.9 (4.0-10.5) K/mm3 RBC 3.49 L (4.1-5.4) M/mm3 Hgb 10.5 L (12.0-16.0) gm/dl Hct 32.9 L (35-47) % MCV 94.3 (78-100) fl MCH 30.1 (26-32) pg MCHC 31.9 L (32-36) g/dl RDW 12.3 (11.5-14.0) % Plt Count 248 (150-450) K/mm3 MPV 11.0 (7.5-11.0) fl Gran % 42.1 (36.0-66.0) % Eos # (Auto) 0.43 (0-0.5) Absolute Lymphs (auto) 3.01 (1.0-4.6) Absolute Monos (auto) 0.54 (0.0-1.3) Lymphocytes % 43.5 (24.0-44.0) % Monocytes % 7.8 (0.0-12.0) % Eosinophils % 6.2 H (0.00-5.0) % Basophils % 0.4 (0.0-0.4) % Absolute Granulocytes 2.91 (1.4-6.9) Basophils # 0.03 (0-0.4) Sodium 137 (137-145) mmol/L Potassium 3.3 L (3.5-5.1) mmol/L Chloride 106 (98-107) mmol/L Carbon Dioxide 27 (22-30) mmol/L Anion Gap 7.4 (5-15) MEQ/L BUN < 2 L (7-17) mg/dL Creatinine 0.65 (0.52-1.04) mg/dL Estimated GFR > 60.0 ML/MIN Glucose 90 (74-106) mg/dL Calcium 7.8 L (8.4-10.2) mg/dL Magnesium 1.6 (1.6-2.3) mg/dL Radiology Exams: Radiology Procedures Category Date Time Status HEAD WITHOUT CONTRAST [CT] Stat Exams 08/21/21 15:44 Completed MRI BRAIN W & W/O CONTRAST [MRI] Routine Exams 08/22/21 09:43 Completed Assessment/Plan (1) Herpes simplex ophthalmicus Status: Acute Assessment & Plan: IV Acyclovir-teleneuro consult Code(s): B00.50 - HERPESVIRAL OCULAR DISEASE, UNSPECIFIED (2) Seizure Status: Suspected Assessment & Plan: await Teleneuro for plan. Code(s): R56.9 - UNSPECIFIED CONVULSIONS (3) Anxiety Status: Acute Assessment & Plan: situational Code(s): F41.9 - ANXIETY DISORDER, UNSPECIFIED (4) Lupus Status: Chronic Assessment & Plan: immunocompromized Code(s): M32.9 - SYSTEMIC LUPUS ERYTHEMATOSUS, UNSPECIFIED
[2021-08-23] MEDS: NEURONTIN 300 MG PO SCH ×2 (14:11→18:15)
[2021-08-23] MEDS ORDERED: OXYCODONE-ACETAMINOPHEN 10-325 PO PRN (15:43)
[2021-08-23] MEDS ORDERED: VERSED 5 MG/5 ML IV ONE (17:00)
[2021-08-23 18:03] VITALS: BP 122/75; PULSE 94; O2SAT 94
[2021-08-23 18:37] LABS: CSF GLUCOSE 52 mg/dL (40-70); CSF PROTEIN 17 mg/dL (12-60)
[2021-08-23 18:53] LABS: CSF CLARITY CLEAR; CSF COLOR COLORLESS; CSF RBCS 1 CU. MM (0-2); CSF WBCS 1 CU. MM (0-6)
== END 2021-08-23 21:13 | disposition home or self-care (01) ==
LOC: ED 15:30 → MED SURG 22:19
PROVIDERS: ADMIT Family Medicine; ATTEND Family Medicine
DX: B00.50 Herpesviral ocular disease, unspecified (principal); R56.9 Unspecified convulsions; M32.9 Systemic lupus erythematosus, unspecified; F41.9 Anxiety disorder, unspecified; Z20.828 Contact with and (suspected) exposure to other viral communicable diseases; Z79.899 Other long term (current) drug therapy
CPT/HCPCS: 0241U; 36000; 36415; 62270; 70450; 70553; 80048; 80053; 81001; 82945; 83735; 84157; 84484; 85025; 87529; 87798; 89050; 93005; 93041; 93268; 94760; 95812; 96360; 99285; G0378; G0480; 80307; J0133; J0696; J1170; J2250; J2270; J2405; A9270-GY; J3370

== ENCOUNTER 2021-08-24 17:22 | Observation (INO) | payer OTHER ==
[2021-08-24 19:36] LABS: INFLUENZA A NEGATIVE (NEGATIVE); INFLUENZA B NEGATIVE (NEGATIVE); RESPIRATORY SYNCTIAL VIRUS NEGATIVE (Negative); SARS-CoV-2 Xpert Express NEGATIVE (NEGATIVE)
[2021-08-24] MEDS ORDERED: Zovirax INJ IV ONE (21:17)
[2021-08-24] MEDS ORDERED: Sodium Chloride 0.9% 250 ML 250 ML IV ONE (21:18)
[2021-08-24] MEDS: ZOVIRAX IV SCH (21:26)
[2021-08-24] MEDS: SODIUM CHLORIDE 0.9% IV SCH (21:26)
[2021-08-24] MEDS: NEURONTIN 300 MG PO SCH (21:35)
[2021-08-24] MEDS: ATARAX 25 MG PO SCH (21:35)
[2021-08-24] MEDS: Hydromorphone 1 mg/ml Injection IV PRN (21:42)
[2021-08-24] MEDS: OXYCODONE-ACETAMINOPHEN 10-325 PO PRN (21:43)
--- NOTE | 2021-08-25 00:03 | PCM.HP.ADD ---
Addendum to History & Physical - History & Physical Addendum Addendum to History & Physical: This certifies that the History & Physical in the electronic chart reflects the current health status of the patient. If there are changes in the H&P these changes/exceptions are listed as follows.Patient has left ocular herpes infection treated with IV Acyclovir . She is readmitted. See Teleneuro consult 08/23/21. Lumbar tap results pending,done to rule out Herpes encephalitis.IV Acyclovir restarted. Headache and eye pain continues.Neurologist advised continuing IV Acyclovir .
[2021-08-25] MEDS: Hydromorphone 1 mg/ml Injection IV PRN ×3 (02:45→13:32)
[2021-08-25] MEDS ORDERED: Zovirax INJ IV ONE (06:10)
[2021-08-25] MEDS ORDERED: Sodium Chloride 0.9% 250 ML 250 ML IV ONE (06:24)
[2021-08-25] MEDS: ZOVIRAX IV SCH ×3 (06:25→22:07)
[2021-08-25] MEDS: SODIUM CHLORIDE 0.9% IV SCH ×3 (06:25→22:07)
[2021-08-25] MEDS: NEURONTIN 300 MG PO SCH ×3 (10:37→22:06)
[2021-08-25] MEDS ORDERED: Zofran 4 MG/2 ML VIAL IV PRN (15:09)
[2021-08-25] MEDS: OXYCODONE-ACETAMINOPHEN 10-325 PO PRN (19:24)
[2021-08-25] MEDS: ATARAX 25 MG PO SCH (22:06)
[2021-08-26] MEDS: OXYCODONE-ACETAMINOPHEN 10-325 PO PRN ×4 (00:21→19:02)
[2021-08-26] MEDS: Hydromorphone 1 mg/ml Injection IV PRN (06:03)
[2021-08-26] MEDS: SODIUM CHLORIDE 0.9% IV SCH ×3 (06:13→20:54)
[2021-08-26] MEDS: ZOVIRAX IV SCH ×3 (06:13→20:54)
[2021-08-26] MEDS ORDERED: BELIMUMAB SQ SCH (07:30)
[2021-08-26] MEDS ORDERED: MEDICATION INTERVENTION MC SCH (07:45)
--- NOTE | 2021-08-26 08:45 | PCM.NOTE ---
Date and Time: 08/26/21 0843 Subjective Assessment: patient still has significant pain in the left eye, has significant headache and lights are off in the room Objective Exam General Appearance: no apparent distress, alert Eye Exam: other (left eye injected) Respiratory Exam: normal breath sounds, lungs clear, No respiratory distress Cardiovascular Exam: regular rate/rhythm, normal heart sounds Gastrointestinal/Abdomen Exam: soft, No tenderness, No mass Extremity Exam: normal inspection, normal range of motion OBJECTIVE DATA Vital Signs: Vital Signs - 24 hr Temp Pulse Resp BP Pulse Ox 08/26/21 04:00 97.1 F 70 20 104/58 95 08/26/21 00:00 97.3 F 69 20 94/50 94 L 08/25/21 20:00 97.0 F 62 18 111/69 98 08/25/21 16:00 97.5 F 69 128/58 96 08/25/21 12:00 97.7 F 56 L 19 118/94 96 Pain Assessment - Last Documented Pain Intensity 9 Pain Scale Used 0-10 Pain Scale Intake and Output: Intake & Output 08/23/21 08/24/21 08/25/21 08/26/21 11:59 11:59 11:59 11:59 Intake Total 1100 2057 Balance 1100 2057 Weight 92.5 kg Assessment/Plan (1) Herpes simplex ophthalmicus Current Visit: No Status: Acute Assessment & Plan: continue IV acyclovir, will add steroids, pain control. csf was clear on 08/23 Code(s): B00.50 - HERPESVIRAL OCULAR DISEASE, UNSPECIFIED
[2021-08-26] MEDS: Cymbalta 30 MG Capsule PO SCH (09:48)
[2021-08-26] MEDS: NEURONTIN 300 MG PO SCH ×3 (09:48→20:54)
[2021-08-26] MEDS: solu-MEDROL IV SCH ×3 (09:57→18:57)
[2021-08-26] MEDS ORDERED: solu-MEDROL W/DILUENT 500 MG IV SCH (12:00)
[2021-08-26] MEDS: ATARAX 25 MG PO SCH (20:54)
[2021-08-27] MEDS: OXYCODONE-ACETAMINOPHEN 10-325 PO PRN ×3 (00:08→10:44)
[2021-08-27] MEDS: solu-MEDROL IV SCH ×2 (00:08→06:00)
[2021-08-27 05:21] LABS: Absolute Neutrophil Ct (ANC) 10.38 (1.4-6.9); Basophil (Absolute #) 0 (0-0.4); Eosinophil (Absolute #) 0 (0-0.5); Hematocrit 34.9 % (35-47); Hemoglobin 11.5 gm/dl (12.0-16.0); Lymphocyte (Absolute #) 0.59 (1.0-4.6); Lymphocytes % 5.3 % (24.0-44.0); Mean Cell Volume 92.3 fl (78-100); Mean Corpuscular Hemoglobin 30.4 pg (26-32); Monocyte (Absolute #) 0.16 (0.0-1.3); Monocytes % 1.4 % (0.0-12.0); Neutrophil % 93.3 % (36.0-66.0); Platelet Count 272 K/mm3 (150-450); Red Blood Count 3.78 M/mm3 (4.1-5.4); Red Cell Distribution Width 12.3 % (11.5-14.0); White Blood Count 11.1 K/mm3 (4.0-10.5)
[2021-08-27] MEDS: SODIUM CHLORIDE 0.9% IV SCH (05:59)
[2021-08-27] MEDS: ZOVIRAX IV SCH (05:59)
[2021-08-27 06:01] LABS: ANION GAP 12.4 MEQ/L (5-15); BLOOD UREA NITROGEN 4 mg/dL (7-17); CHLORIDE 105 mmol/L (98-107); Calcium 8.7 mg/dL (8.4-10.2); Carbon Dioxide 26 mmol/L (22-30); Creatinine 1 0.54 mg/dL (0.52-1.04); EST GLOMERULAR FILTRATION RATE > 60.0 ML/MIN; Glucose 147 mg/dL (74-106); MAGNESIUM 1.8 mg/dL (1.6-2.3); Potassium 3.9 mmol/L (3.5-5.1); SODIUM 140 mmol/L (137-145)
[2021-08-27 07:14] LABS: Slide Review 1 YES
[2021-08-27 07:35] VITALS: O2SAT 99
[2021-08-27] MEDS: Cymbalta 30 MG Capsule PO SCH (08:58)
[2021-08-27] MEDS: NEURONTIN 300 MG PO SCH (08:58)
--- NOTE | 2021-08-27 11:00 | PCM.DS ---
Discharge Summary Date of Admission: 08/24/21 17:22 Admitting Physician: YOCASTA BUSTILLOS DO Primary Care Provider: JOSE LI Allergies Allergies No Known Drug Allergies Allergy (Verified 08/24/21 17:55) Hospital Summary - Hospital Course Hospital Course: patient was admitted after seeing optometry with left eye pain, VZV seen on exam. had a syncopal episode/seizure in the office. MRI was negative and EEG was wnl, points to syncope. she has passed out in the past, her eye pain and headache are improved. initial csf on 08/23 was reassuring with normal csf glucose and protein, VZV and HSV PCR are pending, but clinically much better so home on po acyclovir, patient is aware if pcr is positive she will need to return for IV acyclovir, she wishes to go home to her children since she is feeling better and her pain is controlled currently. - Vitals & Intake/Output Vital Signs: Vital Signs Temperature 97.9 F 08/27/21 07:34 Pulse Rate 81 08/27/21 07:34 Respiratory Rate 18 08/27/21 07:34 Blood Pressure 114/65 08/27/21 07:34 O2 Sat by Pulse Oximetry 99 08/27/21 07:34 Intake & Output: Intake & Output 08/24/21 08/25/21 08/26/21 08/27/21 11:59 11:59 11:59 11:59 Intake Total 1100 2357 1000 Balance 1100 2357 1000 Weight 92.5 kg - Lab Result Diagrams: 08/27/21 05:05 08/27/21 05:05 Lab Results-Last 24 Hrs: Lab Results-Last 24 Hours 08/27/21 08/27/21 Range/Units 05:05 05:05 WBC 11.1 H (4.0-10.5) K/mm3 RBC 3.78 L (4.1-5.4) M/mm3 Hgb 11.5 L (12.0-16.0) gm/dl Hct 34.9 L (35-47) % MCV 92.3 (78-100) fl MCH 30.4 (26-32) pg MCHC 33.0 (32-36) g/dl RDW 12.3 (11.5-14.0) % Plt Count 272 (150-450) K/mm3 MPV 11.0 (7.5-11.0) fl Gran % 93.3 H (36.0-66.0) % Eos # (Auto) 0 (0-0.5) Absolute Lymphs (auto) 0.59 L (1.0-4.6) Absolute Monos (auto) 0.16 (0.0-1.3) Lymphocytes % 5.3 L (24.0-44.0) % Monocytes % 1.4 (0.0-12.0) % Eosinophils % 0.0 (0.00-5.0) % Basophils % 0.0 (0.0-0.4) % Absolute Granulocytes 10.38 H (1.4-6.9) Basophils # 0 (0-0.4) Sodium 140 (137-145) mmol/L Potassium 3.9 (3.5-5.1) mmol/L Chloride 105 (98-107) mmol/L Carbon Dioxide 26 (22-30) mmol/L Anion Gap 12.4 (5-15) MEQ/L BUN 4 L (7-17) mg/dL Creatinine 0.54 (0.52-1.04) mg/dL Estimated GFR > 60.0 ML/MIN Glucose 147 H (74-106) mg/dL Calcium 8.7 (8.4-10.2) mg/dL Magnesium 1.8 (1.6-2.3) mg/dL Slides for Path Review YES Discharge Exam General Appearance: no apparent distress, obese Neurologic Exam: alert, oriented x 3 Eye Exam: other (left conjunctiva injected, no other rash) Respiratory Exam: normal breath sounds, lungs clear, No respiratory distress Cardiovascular Exam: regular rate/rhythm, normal heart sounds Gastrointestinal/Abdomen Exam: soft, No tenderness, No mass Extremity Exam: normal inspection, normal range of motion Skin Exam: normal color, warm, dry Final Diagnosis/Problem List - Final Discharge Diagnosis/Problem (1) HZV (herpes zoster virus) with ophthalmic complication Current Visit: Yes Status: Acute Assessment & Plan: home on po acyclovir 800mg 5 times a day x 10 days, has bottle at home from optometry and showed me the picture of it. Code(s): B02.30 - ZOSTER OCULAR DISEASE, UNSPECIFIED - Discharge Disposition: Home, Self-Care Condition: Stable Prescriptions: New Methylprednisolone Packet [Medrol Dosepack] 4 mg PO UD #21 tab Oxycodone / APAP 10/325 mg [Oxycodone-Acetaminophen 10-325] 1 tab PO Q4H PRN PRN #28 tablet MDD 6 PRN Reason: Pain Continue Ergocalciferol (Vitamin D2) [Vitamin D2] 1 cap PO WEEKLY Hydroxyzine HCl 25 mg [Atarax 25 mg] 25 mg PO HS Belimumab [Benlysta] 200 mg SQ WEEKLY Duloxetine HCl 30 mg PO DAILY Gabapentin 300 mg [Neurontin 300 mg] 300 mg PO TID Discontinued Oxycodone / APAP 10/325 mg [Oxycodone-Acetaminophen 10-325] 1 each PO TIDPRN Follow up with: JOSE LI MD [Primary Care Provider] -
[2021-08-27 13:09] VITALS: BP 121/70; PULSE 88
[2021-08-29] MEDS ORDERED: VITAMIN D2 PO SCH (10:00)
== END 2021-08-27 12:15 | disposition home or self-care (01) ==
LOC: MED SURG 17:22
PROVIDERS: ADMIT Family Medicine; ATTEND Family Medicine
DX: B02.30 Zoster ocular disease, unspecified (principal); B00.50 Herpesviral ocular disease, unspecified; R56.9 Unspecified convulsions; Z79.899 Other long term (current) drug therapy; Z20.828 Contact with and (suspected) exposure to other viral communicable diseases
CPT/HCPCS: 0241U; 36415; 80048; 83735; 85025; G0378; J0133; J1170; J2405; J2930; A9270-GY

== ENCOUNTER 2022-04-08 07:00 | Day surgery (SDC) | payer OTHER ==
[~2022-04-08 07:00] MED LIST: Lactated Ringers 1,000 ML IV ONE; Sensorcaine 0.25% 10 ML ONE
[2022-04-08] MEDS ORDERED: Lactated Ringers 1,000 ML IV ONE (07:09)
[2022-04-08] MEDS ORDERED: CEFAZOLIN 2 GM-D5W BAG** 2 GM/50 ML ML IV ONE (07:09)
[2022-04-08] MEDS: CEFAZOLIN 2 GM-D5W BAG** 2 GM/50 ML ML IV SCH (07:12)
[2022-04-08] MEDS: Lactated Ringers 1,000 ML IV SCH (07:13)
[2022-04-08] MEDS ORDERED: DIPRIVAN 200 MG/20 ML IV ONE (07:59)
[2022-04-08] MEDS ORDERED: Decadron 4 MG INJ ONE ×2 (07:59→08:01)
[2022-04-08] MEDS ORDERED: Xylocaine-Mpf 2% 5 Ml Vial ONE (07:59)
[2022-04-08] MEDS ORDERED: Zemuron 100 MG/10 ML ONE (07:59)
[2022-04-08] MEDS ORDERED: Zofran 4 MG/2 ML VIAL ONE ×2 (07:59→09:41)
[2022-04-08] MEDS ORDERED: SUBLIMAZE 100 MCG/2 ML ONE ×2 (08:00→09:33)
[2022-04-08] MEDS ORDERED: BRIDION 200MG/2ML IV ONE (08:03)
[2022-04-08] MEDS ORDERED: Versed 2 MG/2 ML Injection ONE (08:55)
[2022-04-08] MEDS ORDERED: TORAdol 30 mg Injection ONE (09:33)
[2022-04-08] MEDS ORDERED: Hydromorphone 1 mg/ml Injection ONE ×2 (09:49→09:58)
[2022-04-08 10:44] LABS: Appearance CLEAR (CLEAR); Bilirubin NEGATIVE (NEGATIVE); Dipstick done @ ? MAIN LAB; Glucose NEGATIVE (NEGATIVE); Ketones NEGATIVE (NEGATIVE); Nitrite NEGATIVE (NEGATIVE); Protein,Urine Dip NEGATIVE (Negative); RBC NEGATIVE Ery/ul (0-5); Specific Gravity 1.015 (1.005-1.025); Urobilinogen 0.2 mg/dL (0-1)
[2022-04-08 10:49] VITALS: BP 129/86; PULSE 76; O2SAT 98
--- NOTE | 2022-04-09 10:28 | OP ---
SURGERY DATE/TIME: 04/08/2022 0855 PREOPERATIVE DIAGNOSIS: Contraceptive management. POSTOPERATIVE DIAGNOSIS: Contraceptive management. PROCEDURE: Laparoscopic tubal sterilization via Falope ring application and removal of intrauterine device. SURGEON: Venkata Azar D.O. PANTRY STEWARD/STEWARDESS: Maged Limon surgical services coordinator. ANESTHESIA: General. ESTIMATED BLOOD LOSS: Minimal. COMPLICATIONS: None. INDICATIONS: The risks, benefits, indications and alternatives of the procedure were reviewed with the patient prior to the procedure. The patient understood the risk of infection, bleeding, bowel injury, bladder injury, ureteral injury, uterine perforation, pelvic infection, possible , possible ectopic and all other forms of control have been discussed with the patient prior to the procedure. DESCRIPTION OF PROCEDURE AND FINDINGS: At this point the patient is taken to the operating room, given general sedation, placed in dorsal lithotomy position, prepped and draped in the usual sterile fashion. A weighted speculum is then placed in the patient's vagina and the anterior lip of the cervix is grasped with a single tooth tenaculum where ring forceps were used to remove the intrauterine device and was done so without complication. A uterine manipulator was then subsequently inserted in through the endocervical canal as a means to manipulate the uterus. Attention was then turned to the patient's abdomen where a 5 mm skin incision was made in the umbilical fold. A 5 mm trocar and sleeve were advanced under direct visualization where 4 liters of CO2 gas was placed without complication. An additional incision was made 2 cm above the symphysis pubis where an 8 mm incision was made and an 8 mm trocar and sleeve were advanced under direct visualization. A survey of the patient's pelvis and abdomen revealed entirely normal anatomy. From this point, the Falope ring applicator was then taken through the 8 mm trocar site. The uterus is elevated and the right fallopian tube identified. The Falope ring applicator was placed on the right isthmic region where it was brought up as a knuckle and the Falope ring was displaced with a good knuckle of tube and hemostasis was obtained. The same procedure was performed on the left side where the left tube identified on isthmic region the Falope ring applicator was displaced on its side and was done so without complication. From this point, all instruments were removed from the patient's abdominal region and incisions were closed with 4-0 Monocryl suture. The patient was then taken out of the dorsal lithotomy position, was taken out of anesthesia and was then taken to the recovery room in stable condition. All instruments and laps were accounted for x2.
== END 2022-04-08 11:00 | disposition home or self-care (01) ==
LOC: SDC 07:00
PROVIDERS: ATTEND Obstetrics & Gynecology
DX: Z30.2 Encounter for sterilization (principal)
CPT/HCPCS: 81001; 81025; 87086; J0690; J1100; J1170; J1885; J2250; J2405; J2704; J3010